=== PATIENT | female | born 1965 | race African-American/Black ===

== ENCOUNTER 2019-08-18 08:20 | Inpatient (IN) | payer OTHER ==
[~2019-08-18] VITALS: Ht 165.1 cm; Wt 85.7 kg
[2019-08-18] MEDS ORDERED: SODIUM CHLORIDE 0.9% 1,000 ML IV ONE (08:38)
[2019-08-18] MEDS ORDERED: MORPHINE SULFATE 4 MG/ML CPJ (NOT FOR IM USE) IV STA (08:38)
[2019-08-18] MEDS ORDERED: ONDANSETRON HCL 4MG/2ML INJ IV STA (08:38)
[2019-08-18 09:11] LABS: HEMATOCRIT. 29.6 % (36.0-48.0); HEMOGLOBIN. 10.2 g/dL (12.0-16.0); MEAN CORPUSCULAR HEMOGLOBIN 24.8 pg (28.0-32.0); MEAN CORPUSCULAR VOLUME 72.1 fL (81.0-99.0); MEAN PLATELET VOLUME 9.7 fl (7.4-10.4); PLATELET 158 x1000/uL (130-400); RED BLOOD CELL COUNT 4.11 mill/uL (4.2-5.4); RED CELL DISTRIBUTION WIDTH 15.1 % (11.6-14.6)
[2019-08-18 09:19] LABS: INR 1.2; PROTHROMBIN TIME 13.2 sec (9.6-11.0)
[2019-08-18 09:20] LABS: CHLORIDE 105 mEq/L (98-107)
[2019-08-18 10:10] LABS: PLATELET ESTIMATE NORMAL
[2019-08-18] MEDS ORDERED: DIPHENHYDRAMINE 50MG/ML VIAL IV PRN (13:45)
[2019-08-18] MEDS ORDERED: ACETAMINOPHEN 650MG SUPP PR PRN (13:45)
[2019-08-18] MEDS ORDERED: LORAZEPAM 2MG/ML CPJ IV PRN (13:45)
[2019-08-18] MEDS ORDERED: DEXT 5%/0.45% NACL 1000ML 1,000 ML IV SCH (13:45)
[2019-08-18] MEDS ORDERED: ACETAMINOPHEN 650MG/20.3ML UDC GT PRN (13:45)
[2019-08-18] MEDS ORDERED: IPRATROPIUM/ALBUTEROL 0.5-3(2.5)MG/3ML NEB NEB PRN (13:45)
[2019-08-18 13:55] LABS: TOTAL IRON BINDING CAPACITY 171 ug/dL (250-450)
[2019-08-18] MEDS: FAMOTIDINE 20MG/2ML VIAL IV SCH (14:00)
[2019-08-18] MEDS: MORPHINE SULFATE 2 MG/ML CPJ (NOT FOR IM USE) IV PRN ×2 (15:00→21:59)
[2019-08-18] MEDS: ONDANSETRON HCL 4MG/2ML INJ IV PRN (15:00)
[2019-08-18] MEDS ORDERED: HYDRALAZINE 20MG/ML VIAL IV PRN (15:45)
[2019-08-18] MEDS ORDERED: POTASSIUM CHLORIDE INJ 40 MEQ in DEXT 5% WATER 250 ML IV SCH (16:30)
[2019-08-18] MEDS ORDERED: IOHEXOL-300 100 ML BOTTLE ONE (16:58)
[2019-08-18 17:12] LABS: HEPATITIS B SURFACE ANTIGEN NEGATIVE
[2019-08-18 17:42] LABS: HEPATITIS A AB IGM NEGATIVE (NEGATIVE)
[2019-08-18 21:00] VITALS: BP 123/79
[2019-08-18] MEDS: ENOXAPARIN 40MG/0.4ML SYR SUBCUT SCH (22:07)
[2019-08-18] MEDS ORDERED: ATEN-42 PO (22:39)
[2019-08-18] MEDS ORDERED: CARV3.1242 PO (22:39)
[2019-08-18] MEDS ORDERED: HYDR25TA PO (22:39)
[2019-08-18] MEDS: LACTULOSE 20G/30ML UDC PO SCH (22:51)
[2019-08-18 23:06] LABS: CLARITY URINE CLEAR (CLEAR); COLOR URINE YELLOW (YELLOW); KETONES URINE 1+ (NEGATIVE); LEUKOCYTE ESTERASE URINE 2+ (NEGATIVE); NITRITE URINE NEGATIVE (NEGATIVE); OCCULT BLOOD URINE 1+ (NEGATIVE); PROTEIN URINE TRACE (NEGATIVE); SPECIFIC GRAVITY URINE 1.066 (1.005-1.030)
[2019-08-18 23:26] LABS: *AMPHETAMINES SCREEN URINE NEGATIVE (NEGATIVE); *BARBITURATES SCREEN URINE NEGATIVE (NEGATIVE); *BENZODIAZEPINES SCREEN URINE NEGATIVE (NEGATIVE); *COCAINE SCREEN URINE NEGATIVE (NEGATIVE)
[2019-08-18 23:27] LABS: CANNABINOID URINE SCREEN NEGATIVE (NEGATIVE); METHADONE URINE SCREEN NEGATIVE (NEGATIVE); OPIATES URINE SCREEN PRESUMTIVE POSITIVE (NEGATIVE); PHENCYCLIDINE URINE SCREEN NEGATIVE (NEGATIVE)
[2019-08-19] VITALS: BP_SYST 143; BP_SYST 151; BP_DIAS 67; BP_DIAS 74
[2019-08-19 04:00] VITALS: BP 151/74
[2019-08-19] MEDS: ONDANSETRON HCL 4MG/2ML INJ IV PRN ×3 (04:47→16:16)
[2019-08-19 07:46] LABS: HEMATOCRIT. 26.6 % (36.0-48.0); HEMOGLOBIN. 9.1 g/dL (12.0-16.0); MEAN CORPUSCULAR HEMOGLOBIN 24.6 pg (28.0-32.0); MEAN CORPUSCULAR VOLUME 71.7 fL (81.0-99.0); MEAN PLATELET VOLUME 9.7 fl (7.4-10.4); PLATELET 150 x1000/uL (130-400); RED BLOOD CELL COUNT 3.71 mill/uL (4.2-5.4); RED CELL DISTRIBUTION WIDTH 15.1 % (11.6-14.6)
[2019-08-19 08:00] VITALS: BP 144/75
[2019-08-19 08:00] LABS: CHLORIDE 108 mEq/L (98-107)
[2019-08-19 08:08] LABS: LDL CHOLESTEROL 50 mg/dL (5-100)
[2019-08-19 08:12] LABS: HDL CHOLESTEROL 22 mg/dL (40-59)
[2019-08-19 08:18] LABS: T4 FREE 7.02 ng/dL (0.76-1.46)
[2019-08-19] MEDS: FAMOTIDINE 20MG/2ML VIAL IV SCH (08:45)
[2019-08-19] MEDS: POLYETHYLENE GLYCOL 3350 (17GM) 1 DOSE PACK PO SCH (08:52)
[2019-08-19] MEDS: DOCUSATE SODIUM 100MG CAPSULE PO SCH ×2 (08:52→18:47)
[2019-08-19] MEDS: MORPHINE SULFATE 2 MG/ML CPJ (NOT FOR IM USE) IV PRN ×2 (09:52→16:17)
[2019-08-19 12:00] VITALS: BP 133/72
[2019-08-19 12:10] LABS: PLATELET ESTIMATE NORMAL
[2019-08-19] MEDS ORDERED: BISACODYL 10MG SUPP PR NR (17:30)
[2019-08-19] MEDS ORDERED: BISACODYL 5MG TABLET PO NR (17:30)
[2019-08-19 20:00] VITALS: BP 130/70
[2019-08-19] MEDS ORDERED: ONDANSETRON HCL 4MG TABLET PO PRN (20:15)
[2019-08-19] MEDS ORDERED: DIPHENHYDRAMINE 50MG CAPSULE PO PRN (20:30)
[2019-08-19] MEDS ORDERED: HYDRALAZINE 10 MG in SODIUM CHLORIDE 0.9% 49.5 ML IV PRN (20:30)
[2019-08-19] MEDS: LACTULOSE 20G/30ML UDC PO SCH ×2 (21:00→21:01)
[2019-08-19] MEDS: ENOXAPARIN 40MG/0.4ML SYR SUBCUT SCH ×2 (21:02→21:09)
[2019-08-19] MEDS ORDERED: HYDROCODONE/ACETAMINOPHEN 5/325MG TABLET PO PRN (21:45)
[2019-08-20] VITALS (7 sets, daily range): BP systolic 118–145; BP diastolic 60–82
[2019-08-20 06:42] LABS: BASOPHILS % 0.2 % (0.0-2.0); EOSINOPHILS % 2.6 % (0.0-5.0); HEMATOCRIT. 26.3 % (36.0-48.0); LYMPHOCYTES % 44.4 % (20.0-50.0); MEAN CORPUSCULAR HEMOGLOBIN 24.8 pg (28.0-32.0); MEAN CORPUSCULAR VOLUME 72.5 fL (81.0-99.0); MEAN PLATELET VOLUME 9.6 fl (7.4-10.4); MONOCYTES % 14.5 % (2.0-8.0); NEUTROPHILS % 38.3 % (40.0-76.0); PLATELET 156 x1000/uL (130-400); RED BLOOD CELL COUNT 3.62 mill/uL (4.2-5.4); RED CELL DISTRIBUTION WIDTH 14.8 % (11.6-14.6)
[2019-08-20 07:03] LABS: CHLORIDE 107 mEq/L (98-107)
[2019-08-20 07:36] LABS: VITAMIN B12 SERUM 1518 pg/mL (211-911)
[2019-08-20] MEDS ORDERED: SODIUM BICARBONATE 4% (2.4MEQ) 5ML VIAL IV ONE (07:47)
[2019-08-20] MEDS ORDERED: LIDOCAINE HCL 1% 20ML VIAL (Pyxis) INJ ONE (07:48)
[2019-08-20] MEDS: FAMOTIDINE 20MG/2ML VIAL IV SCH (09:58)
[2019-08-20] MEDS: POLYETHYLENE GLYCOL 3350 (17GM) 1 DOSE PACK PO SCH (09:58)
[2019-08-20] MEDS: DOCUSATE SODIUM 100MG CAPSULE PO SCH ×2 (09:59→16:57)
[2019-08-20] MEDS: ONDANSETRON HCL 4MG/2ML INJ IV PRN (10:23)
[2019-08-20] MEDS: MORPHINE SULFATE 2 MG/ML CPJ (NOT FOR IM USE) IV PRN ×2 (10:23→16:18)
[2019-08-20] MEDS ORDERED: POTASSIUM CHLORIDE 20MEQ TABLET SR PO SCH (11:30)
[2019-08-20] MEDS ORDERED: LACTULOSE 20G/30ML UDC PO NR (14:00)
[2019-08-20] MEDS ORDERED: NA PHOS,M-B/NA PHOS,DI-BA ENEMA 118ML PR NR (14:00)
[2019-08-20] MEDS ORDERED: ONDA4TAB5 MT (14:03)
[2019-08-20] MEDS ORDERED: DOCU-138 MT (14:03)
== END 2019-08-20 20:35 | disposition home health service (06) | DRG 641 ==
LOC: ER 08:20 → EDBEDREQTM 11:18 → 6EST 12:05 → EDBEDREQTM 12:42 → EDBEDREQ 12:42 → SUPCPDRO 14:05 → ENRESERV 19:37
PROVIDERS: ADMIT Internal Medicine; ATTEND Internal Medicine
PROC: 02HV33Z Insertion of Infusion Device into Superior Vena Cava, Percutaneous Approach (ICD-10-PCS; principal; 2019-08-20)
PROC: B548ZZA Ultrasonography of Superior Vena Cava, Guidance (ICD-10-PCS; 2019-08-20)
PROC: B5181ZA Fluoroscopy of Superior Vena Cava using Low Osmolar Contrast, Guidance (ICD-10-PCS; 2019-08-20)
DX: E87.6 Hypokalemia (principal); E83.52 Hypercalcemia; R10.9 Unspecified abdominal pain; K57.90 Diverticulosis of intestine, part unspecified, without perforation or abscess without bleeding; K59.00 Constipation, unspecified; I10 Essential (primary) hypertension; E88.09 Other disorders of plasma-protein metabolism, not elsewhere classified; D50.9 Iron deficiency anemia, unspecified; D25.9 Leiomyoma of uterus, unspecified; E05.90 Thyrotoxicosis, unspecified without thyrotoxic crisis or storm; M48.061 Spinal stenosis, lumbar region without neurogenic claudication; M43.16 Spondylolisthesis, lumbar region; M47.816 Spondylosis without myelopathy or radiculopathy, lumbar region; R74.0 Nonspecific elevation of levels of transaminase and lactic acid dehydrogenase [LDH]; R26.81 Unsteadiness on feet; R73.9 Hyperglycemia, unspecified; Z60.2 Problems related to living alone; Z79.899 Other long term (current) drug therapy
CPT/HCPCS: 36415; 36573; 71045; 72141; 72146; 72148; 74018; 74177; 76937; 80053; 80061; 80076; 80305; 81003; 82330; 82607; 83540; 83550; 84439; 84443; 84481; 85025; 86705; 86709; 86803; 87340; 93005; 93306; 93970; 97162; 97530; C1725; J1650; J2270; J2405; J3480; J3490; J7030; J7060; Q0162; Q0163; Q9967